=== PATIENT | female | born 1965 | race Two or more races ===

== ENCOUNTER 2020-02-04 09:15 | Emergency (ER) | payer OTHER ==
[~2020-02-04] VITALS: Ht 152.4 cm; Wt 81.6 kg
== END 2020-02-04 17:58 | disposition home or self-care (01) ==
LOC: ER 09:15
DX: K29.60 Other gastritis without bleeding (principal); A05.9 Bacterial foodborne intoxication, unspecified; Z03.818 Encounter for observation for suspected exposure to other biological agents ruled out